=== PATIENT | male | born 1975 | race Caucasian/White ===

== ENCOUNTER 2019-06-08 12:10 | Emergency (ER) | payer OTHER ==
[~2019-06-08] VITALS: Ht 180.3 cm; Wt 82.5 kg
[2019-06-08] MEDS ORDERED: OMEPRAZOLE20 MG PO (12:36)
== END 2019-06-08 13:54 | disposition home or self-care (01) ==
LOC: ED 12:10
PROC: 0HQKXZZ Repair Right Lower Leg Skin, External Approach (ICD-10-PCS; principal; 2019-06-08)
DX: S81.011A Laceration without foreign body, right knee, initial encounter (principal); W22.8XXA Striking against or struck by other objects, initial encounter; Z88.0 Allergy status to penicillin; Z88.5 Allergy status to narcotic agent; Z79.899 Other long term (current) drug therapy
CPT/HCPCS: 12001; 73562; 90471; 90715; 99283-25

== ENCOUNTER 2023-11-24 14:58 | Emergency (ER) | payer OTHER ==
[~2023-11-24] VITALS: Ht 180.3 cm; Wt 91.0 kg
[~2023-11-24 14:58] MED LIST: OMEPRAZOLE20 MG PO
--- OUTSIDE RECORDS SUMMARY | 2023-11-24 15:04 | XMS ---
PreManage Notification: JAH VELA Security Venue Attendant Events No recent Security Events currently on file CRITERIA MET - [facility] - 2 Visits in 30 Days CARE PROVIDERS There are no care providers on record at this time. Renetta has no Care Guidelines for this patient. Massimo VISIT COUNT (12 MO.) 1 [facility] Kiley Berg Talita TOTAL 2 NOTE: Visits indicate total known visits. ED/C VISIT TRACKING (12 MO.) 11/24/2023 14:58 [facility] [place] TYPE: Emergency COMPLAINT: - NOSE BLEED 11/20/2023 14:47 Gail KESSLER TYPE: Emergency COMPLAINT: - CERVICALGIA - Neck Pain_NECK PAIN DIAGNOSES: 0. Cervicalgia 1. Other muscle spasm INPATIENT VISIT TRACKING (12 MO.) No inpatient visits to display in this time frame [id number]
[2023-11-24] MEDS ORDERED: OXYMETAZOLINE HCL 30 ML BTL NAS ONE (15:15)
[2023-11-24] MEDS ORDERED: FLONASE ALLERG9.9 ML NAS (16:07)
[2023-11-24 16:12] VITALS: BP 128/79
== END 2023-11-24 16:12 | disposition home or self-care (01) ==
LOC: ED 14:58
DX: R04.0 Epistaxis (principal); Z79.899 Other long term (current) drug therapy; Z88.0 Allergy status to penicillin; Z88.5 Allergy status to narcotic agent; Z91.048 Other nonmedicinal substance allergy status
CPT/HCPCS: 99283